=== PATIENT | female | born 1960 | race Hispanic/Latino ===

== ENCOUNTER → 2018-05-19 | Outpatient (CLI) | payer OTHER ==
[~2018-05-19] MED LIST: ASPI-1181 PO; ATOR10TA69 PO; CARV6.25 PO; CERT400S SQ; CHOL100040 PO; ERGO500014 PO; FOLI1TAB15 PO; FURO20TA4 PO; HYDR-4060 PO; LEVO100 PO; METF-446 PO; METH4TAB16 PO
== END | disposition home or self-care (01) ==
LOC: RAH 12:19
PROVIDERS: ATTEND Obstetrics & Gynecology
DX: Z12.31 Encounter for screening mammogram for malignant neoplasm of breast (principal); M06.9 Rheumatoid arthritis, unspecified
CPT/HCPCS: 77067

== ENCOUNTER 2018-12-20 23:04 | Emergency (ER) | payer OTHER ==
[2018-12-20 23:18] LABS: BASOPHILS % (AUTO) 0.4 % (0.0-5.0); EOSINOPHILS % (AUTO) 0.7 % (0.0-8.0); HEMATOCRIT 37.7 % (36-48); LYMPHOCYTES % (AUTO) 12.9 % (21.0-51.0); MEAN CORPUSCULAR HEMOGLOBIN 32.2 pg (27.0-33.0); MEAN CORPUSCULAR HGB CONC 33.7 g/dL (32.0-36.0); MEAN CORPUSCULAR VOLUME 95.4 fL (79-99); MONOCYTES % (AUTO) 6.7 % (3.0-13.0); NEUTROPHILS % (AUTO) 79.3 % (40.0-77.0); NUCLEATED RED BLOOD CELLS 0.1 % (0.0-0.19); PLATELET COUNT (AUTO) 304 K/uL (130-400); RED BLOOD CELL COUNT(AUTO) 3.95 MIL/uL (4.00-5.50); RED CELL DISTRIBUTION WIDTH 14.2 % (11.0-15.5); WHITE BLOOD COUNT (AUTO) 10.1 K/uL (4.8-10.8)
[2018-12-20 23:22] LABS: POTASSIUM 3.4 mmol/L (3.5-5.1)
[2018-12-20 23:26] LABS: CREATININE 0.5 mg/dL (0.5-1.5)
[2018-12-20 23:31] LABS: ALBUMIN 3.6 g/dL (3.5-5.0); BILIRUBIN,TOTAL 0.4 mg/dL (0.2-1.0); TOTAL PROTEIN, SERUM 7.7 g/dL (6.0-8.3)
[2018-12-20] MEDS ORDERED: LIDOCAINE 5% TOPICAL PATCH TP ONE (23:42)
[2018-12-20] MEDS ORDERED: KETOROLAC TROMETHAMINE 30MG/ML ONE (23:42)
[2018-12-20] MEDS ORDERED: ORPHENADRINE CITRATE 30 MG/ML ML ONE (23:42)
[2018-12-20] MEDS ORDERED: SODIUM CHLORIDE 0.9% 1000ML 1,000 ML IV ONE (23:43)
[2018-12-21 00:02] LABS: INR 0.95 (0.85-1.15); PARTIAL THROMBOPLASTIN TIME 27.8 SEC (26.3-35.5)
== END 2018-12-21 00:52 | disposition home or self-care (01) ==
LOC: EDH 23:04
DX: R07.89 Other chest pain (principal); M62.830 Muscle spasm of back; E11.9 Type 2 diabetes mellitus without complications; I10 Essential (primary) hypertension; E78.5 Hyperlipidemia, unspecified; I25.2 Old myocardial infarction; E07.9 Disorder of thyroid, unspecified; Z79.899 Other long term (current) drug therapy; Z90.710 Acquired absence of both cervix and uterus
CPT/HCPCS: 36415; 71045; 80053; 83690; 84484; 85025; 85610; 85730; 93005; 96374; 96375; 99285; J1885; J2360; J7030

== ENCOUNTER 2019-09-28 17:48 | Emergency (ER) | payer OTHER ==
[2019-09-28 18:22] LABS: BASOPHILS % (AUTO) 0.1 % (0.0-5.0); EOSINOPHILS % (AUTO) 0.3 % (0.0-8.0); HEMATOCRIT 37.7 % (36-48); LYMPHOCYTES % (AUTO) 5.9 % (21.0-51.0); MEAN CORPUSCULAR HGB CONC 32.4 g/dL (32.0-36.0); MEAN CORPUSCULAR VOLUME 95.7 fL (79-99); MONOCYTES % (AUTO) 3.6 % (3.0-13.0); NEUTROPHILS % (AUTO) 89.9 % (40.0-77.0); PLATELET COUNT (AUTO) 334 K/uL (130-400); RED BLOOD CELL COUNT(AUTO) 3.94 MIL/uL (4.00-5.50); RED CELL DISTRIBUTION WIDTH 13.2 % (11.0-15.5); WHITE BLOOD COUNT (AUTO) 12.1 K/uL (4.8-10.8)
[2019-09-28 18:38] LABS: CREATININE 0.7 mg/dL (0.5-1.5); INR 0.97 (0.85-1.15); PARTIAL THROMBOPLASTIN TIME 26.1 SEC (26.3-35.5); POTASSIUM 3.6 mmol/L (3.5-5.1); PROTHROMBIN TIME 10.2 SEC (9.6-11.6)
[2019-09-28 18:42] LABS: ALBUMIN 2.9 g/dL (3.5-5.0); BILIRUBIN,TOTAL 0.4 mg/dL (0.2-1.0)
[2019-09-28 19:37] LABS: APPEARANCE,URINE Clear (CLEAR); BILIRUBIN,URINE Negative (NEGATIVE); COLOR,URINE Yellow (YELLOW); GLUCOSE, URINE (UA) Negative (NEGATIVE); KETONES,URINE 15 mg/dL (NEGATIVE); LEUKOCYTE ESTERASE ,URINE Small (NEGATIVE); NITRATE,URINE Negative (NEGATIVE); OCCULT BLOOD,URINE Trace (NEGATIVE); PH,URINE 6.5 (5.0-8.0); PROTEIN,URINE Negative (NEGATIVE); UROBILINOGEN,URINE 0.2 mg/dL (0.2-1.0)
[2019-09-28 19:50] LABS: BACTERIA,URINE Few /HPF (None Seen); MUCUS,URINE Few LPF (None Seen); SQUAMOUS EPITHELIAL CELL,UR 0-2 /HPF (0-2)
[2019-09-28] MEDS ORDERED: CEFTRIAXONE SODIUM 1 GM ONE (20:11)
[2019-09-28] MEDS ORDERED: AZITHROMYCIN 500MG+NS 250ML 250 ML IV ONE (20:11)
[2019-09-28] MEDS ORDERED: DOCUSATE SODIUM 100 MG CAP PO ONE (20:11)
== END 2019-09-28 21:05 | disposition home or self-care (01) ==
LOC: EDH 17:48
DX: J18.9 Pneumonia, unspecified organism (principal); N39.0 Urinary tract infection, site not specified; K59.00 Constipation, unspecified; E11.65 Type 2 diabetes mellitus with hyperglycemia; E78.5 Hyperlipidemia, unspecified; I10 Essential (primary) hypertension
CPT/HCPCS: 36415; 71045; 74176; 80053; 81001; 82150; 82550; 83690; 84484; 85025; 85610; 85730; 87088; 93005; 96374; 96375; 99285; J0456; J0696

== ENCOUNTER → 2020-05-20 | Outpatient (CLI) | payer OTHER ==
[~2020-05-20] MED LIST changes: -ASPI-1181 PO; +ASPI-1443 PO
== END | disposition home or self-care (01) ==
LOC: RAH 09:40
PROVIDERS: ATTEND Family Medicine
DX: Z12.31 Encounter for screening mammogram for malignant neoplasm of breast (principal)
CPT/HCPCS: 77067

== ENCOUNTER → 2020-11-27 | Outpatient (CLI) | payer OTHER | END | disposition home or self-care (01) | LOC: OIH 14:22 | PROVIDERS: ATTEND Internal Medicine | DX: M19.072 Primary osteoarthritis, left ankle and foot (principal); M19.071 Primary osteoarthritis, right ankle and foot; M20.12 Hallux valgus (acquired), left foot; M19.032 Primary osteoarthritis, left wrist; M19.031 Primary osteoarthritis, right wrist; M19.041 Primary osteoarthritis, right hand; M19.042 Primary osteoarthritis, left hand | CPT/HCPCS: 73630 ==

== ENCOUNTER 2021-07-06 06:14 | Inpatient (IN) | payer OTHER ==
[~2021-07-06] VITALS: Ht 165.1 cm; Wt 72.3 kg
[2021-07-06] MEDS ORDERED: METOCLOPRAMIDE 10 MG/2 ML VIAL ONE (06:29)
[2021-07-06] MEDS ORDERED: ONDANSETRON 4MG INJ ONE (06:29)
[2021-07-06] MEDS ORDERED: ONDANSETRON 4MG INJ IVP SCH (06:30)
[2021-07-06] MEDS ORDERED: FAMOTIDINE 20MG VIAL IV ONE (06:30)
[2021-07-06] MEDS ORDERED: METOCLOPRAMIDE 10 MG/2 ML VIAL IVP SCH (06:30)
[2021-07-06] MEDS ORDERED: PANTOPRAZOLE 40 MG/VIAL ONE (06:30)
[2021-07-06] MEDS ORDERED: 0.9%NACL 1000ML 1,000 ML IV SCH (06:30)
[2021-07-06] MEDS ORDERED: PANTOPRAZOLE 40 MG/VIAL IVP SCH (06:30)
[2021-07-06] MEDS ORDERED: FAMOTIDINE 20MG VIAL IV SCH (06:30)
[2021-07-06] MEDS ORDERED: 0.9%NACL 1000ML 1,000 ML IV ONE (06:31)
[2021-07-06 06:39] LABS: BASOPHILS % (AUTO) 0.3 % (0.0-5.0); EOSINOPHILS % (AUTO) 0.5 % (0.0-8.0); HEMATOCRIT 45.4 % (36-48); LYMPHOCYTES % (AUTO) 9.7 % (21.0-51.0); MEAN CORPUSCULAR HEMOGLOBIN 29.3 pg (27.0-33.0); MEAN CORPUSCULAR HGB CONC 31.3 g/dL (32.0-36.0); MEAN CORPUSCULAR VOLUME 93.8 fL (79-99); MONOCYTES % (AUTO) 5.6 % (3.0-13.0); PLATELET COUNT (AUTO) 474 K/uL (130-400); RED BLOOD CELL COUNT(AUTO) 4.84 MIL/uL (4.00-5.50); RED CELL DISTRIBUTION WIDTH 14.9 % (11.0-15.5); WHITE BLOOD COUNT (AUTO) 16.5 K/uL (4.8-10.8)
[2021-07-06 06:58] LABS: ALBUMIN 3.8 g/dL (3.5-5.0); BILIRUBIN,TOTAL 0.4 mg/dL (0.2-1.0); CREATININE 0.9 mg/dL (0.5-1.5); POTASSIUM 3.2 mmol/L (3.5-5.1); TOTAL PROTEIN, SERUM 8.1 g/dL (6.0-8.3)
[2021-07-06] MEDS ORDERED: MAG/ALUM/SIMETH 30 ML UDCUP ONE (07:22)
[2021-07-06] MEDS ORDERED: DICYCLOMINE HCL 10 MG/5 ML ML PO SCH (07:30)
[2021-07-06] MEDS ORDERED: LIDOCAINE HCL 2% VISCOUS 15 ML UDCUP PO SCH (07:30)
[2021-07-06] MEDS ORDERED: MAG/ALUM/SIMETH 30 ML UDCUP PO SCH (07:30)
[2021-07-06] MEDS ORDERED: MORPHINE 4 MG SYG ONE (07:41)
[2021-07-06] MEDS ORDERED: MORPHINE 4 MG SYG IV SCH (08:00)
[2021-07-06 08:35] LABS: APPEARANCE,URINE Cloudy (CLEAR); BILIRUBIN,URINE Negative (NEGATIVE); COLOR,URINE Yellow (YELLOW); GLUCOSE, URINE (UA) Negative (NEGATIVE); KETONES,URINE Negative (NEGATIVE); LEUKOCYTE ESTERASE ,URINE Negative (NEGATIVE); NITRATE,URINE Negative (NEGATIVE); OCCULT BLOOD,URINE Negative (NEGATIVE); PH,URINE 5.5 (5.0-8.0); PROTEIN,URINE Negative (NEGATIVE)
[2021-07-06 08:56] LABS: BACTERIA,URINE Rare /HPF (None Seen); CALCIUM OXALATE CRYSTALS,UR Few /LPF (None Seen); MUCUS,URINE Rare LPF (None Seen); RBC,URINE None Seen /HPF (0-1); SQUAMOUS EPITHELIAL CELL,UR Rare /HPF (0-2); WBC,URINE None Seen /HPF (0-1)
[2021-07-06] MEDS ORDERED: HYDRALAZINE 20MG/ML VIAL IV PRN (09:30)
[2021-07-06] MEDS ORDERED: POTASSIUM CHLORIDE 20MEQ/100ML 100 ML IV PRN (09:30)
[2021-07-06] MEDS ORDERED: ACETAMINOPHEN 325 MG TAB PO PRN ×2 (09:30)
[2021-07-06] MEDS ORDERED: LIDOCAINE HCL-MPF 1% 2ML VIAL IV PRN (09:30)
[2021-07-06] MEDS ORDERED: ONDANSETRON 4MG INJ IV PRN (09:30)
[2021-07-06] MEDS ORDERED: IBUP-2071 PO (09:41)
[2021-07-06] MEDS ORDERED: TOFA11TA PO (09:41)
[2021-07-06] MEDS ORDERED: LEVO125C4 PO (09:41)
[2021-07-06] MEDS ORDERED: HYDR-4068 PO (09:41)
[2021-07-06] MEDS ORDERED: LINA145C PO (09:41)
[2021-07-06] MEDS ORDERED: ATOR10 PO (09:41)
[2021-07-06] MEDS ORDERED: METF-444 PO (09:41)
[2021-07-06] MEDS ORDERED: PRED5TAB PO (09:41)
[2021-07-06] MEDS ORDERED: TIZA-211 PO (09:41)
[2021-07-06] MEDS: LACTATED RINGERS 1000ML 1,000 ML IV SCH ×2 (11:03→20:32)
[2021-07-06] MEDS: INSULIN HUMULIN R 100 UNIT/ML 3ML SQ SCH ×3 (11:30→21:00)
[2021-07-06] MEDS ORDERED: MORPHINE 2 MG SYG ONE (11:48)
[2021-07-06] MEDS ORDERED: MORPHINE 2 MG SYG IVP SCH (12:00)
[2021-07-06] MEDS ORDERED: MORPHINE 2 MG SYG IVP PRN (12:00)
[2021-07-06] MEDS ORDERED: KETOROLAC 30MG VIAL (30MG/ML) ONE ×3 (12:48→23:43)
[2021-07-06] MEDS: KETOROLAC 15MG/ML VIAL (15MG/ML) IV PRN ×3 (12:56→23:45)
[2021-07-06] MEDS: ZOSYN 3.375GM+NS 50ML 50 ML IV SCH ×2 (13:57→20:31)
[2021-07-06] MEDS: FAMOTIDINE 20MG VIAL IV SCH (20:31)
[2021-07-06] MEDS ORDERED: HYDROMORPHONE 0.5 MG SYG (0.5MG/0.5ML) IVP ONE (21:00)
[2021-07-07] MEDS ORDERED: MORPHINE 2 MG SYG IVP ONE (01:30)
[2021-07-07] MEDS ORDERED: MORPHINE 2 MG SYG ONE (01:37)
[2021-07-07] MEDS ORDERED: KETOROLAC 30MG VIAL (30MG/ML) ONE (05:09)
[2021-07-07] MEDS: ZOSYN 3.375GM+NS 50ML 50 ML IV SCH ×3 (05:19→19:26)
[2021-07-07] MEDS: LACTATED RINGERS 1000ML 1,000 ML IV SCH ×2 (05:19→15:44)
[2021-07-07] MEDS: KETOROLAC 15MG/ML VIAL (15MG/ML) IV PRN ×2 (05:20→17:52)
[2021-07-07] MEDS: INSULIN HUMULIN R 100 UNIT/ML 3ML SQ SCH ×4 (07:30→20:32)
[2021-07-07 07:44] LABS: THYROID STIMULATING HORMONE 0.88 uIU/mL (0.36-3.74)
[2021-07-07 08:47] VITALS: BP 146/57
[2021-07-07] MEDS: FAMOTIDINE 20MG VIAL IV SCH ×2 (09:43→19:26)
[2021-07-07] MEDS: HYDROMORPHONE 0.5 MG SYG (0.5MG/0.5ML) IVP PRN ×3 (09:43→19:27)
[2021-07-07 09:56] LABS: BASOPHILS % (AUTO) 0.3 % (0.0-5.0); HEMATOCRIT 39.9 % (36-48); MEAN CORPUSCULAR HEMOGLOBIN 29.8 pg (27.0-33.0); MEAN CORPUSCULAR HGB CONC 31.3 g/dL (32.0-36.0); MONOCYTES % (AUTO) 5.5 % (3.0-13.0); NEUTROPHILS % (AUTO) 82.9 % (40.0-77.0); PLATELET COUNT (AUTO) 383 K/uL (130-400); RED CELL DISTRIBUTION WIDTH 14.9 % (11.0-15.5); WHITE BLOOD COUNT (AUTO) 14.6 K/uL (4.8-10.8)
[2021-07-07 10:05] LABS: CREATININE 0.8 mg/dL (0.5-1.5); POTASSIUM 3.5 mmol/L (3.5-5.1)
[2021-07-07 10:08] LABS: INR 0.95 (0.85-1.15); PROTHROMBIN TIME 10.4 SEC (9.6-11.6)
[2021-07-07 10:10] LABS: ALBUMIN 3.1 g/dL (3.5-5.0); BILIRUBIN,TOTAL 0.6 mg/dL (0.2-1.0); MAGNESIUM 2.4 mg/dL (1.80-2.40); PHOSPHORUS 3.2 mg/dL (2.5-4.9)
[2021-07-07 11:41] VITALS: BP 134/75
[2021-07-07 16:19] VITALS: BP 137/80
[2021-07-07 20:20] VITALS: BP 151/86
[2021-07-08 00:24] VITALS: BP 149/85
[2021-07-08] MEDS: HYDROMORPHONE 0.5 MG SYG (0.5MG/0.5ML) IVP PRN ×4 (01:44→09:45)
[2021-07-08] MEDS: LACTATED RINGERS 1000ML 1,000 ML IV SCH ×2 (02:20→19:52)
[2021-07-08 03:32] VITALS: BP 148/91
[2021-07-08 04:58] LABS: BASOPHILS % (AUTO) 0.3 % (0.0-5.0); HEMATOCRIT 36.5 % (36-48); LYMPHOCYTES % (AUTO) 8.2 % (21.0-51.0); MEAN CORPUSCULAR HEMOGLOBIN 29.2 pg (27.0-33.0); MEAN CORPUSCULAR HGB CONC 30.4 g/dL (32.0-36.0); MEAN CORPUSCULAR VOLUME 96.1 fL (79-99); MONOCYTES % (AUTO) 5.5 % (3.0-13.0); NEUTROPHILS % (AUTO) 83.5 % (40.0-77.0); PLATELET COUNT (AUTO) 326 K/uL (130-400); RED CELL DISTRIBUTION WIDTH 14.5 % (11.0-15.5); WHITE BLOOD COUNT (AUTO) 11.6 K/uL (4.8-10.8)
[2021-07-08 05:19] LABS: ALBUMIN 2.6 g/dL (3.5-5.0); BILIRUBIN,TOTAL 0.3 mg/dL (0.2-1.0); CREATININE 0.6 mg/dL (0.5-1.5); MAGNESIUM 2.2 mg/dL (1.80-2.40); PHOSPHORUS 3.2 mg/dL (2.5-4.9); POTASSIUM 4.1 mmol/L (3.5-5.1); TOTAL PROTEIN, SERUM 6.1 g/dL (6.0-8.3)
[2021-07-08] MEDS: KETOROLAC 15MG/ML VIAL (15MG/ML) IV PRN (05:27)
[2021-07-08] MEDS: ZOSYN 3.375GM+NS 50ML 50 ML IV SCH ×3 (05:28→19:51)
[2021-07-08] MEDS: INSULIN HUMULIN R 100 UNIT/ML 3ML SQ SCH ×4 (05:47→21:00)
[2021-07-08 08:00] VITALS: BP 130/79
[2021-07-08] MEDS: FAMOTIDINE 20MG VIAL IV SCH ×2 (09:11→19:52)
[2021-07-08 10:25] LABS: AMPHET/METH SCREEN,URINE NEGATIVE (NEGATIVE); BARBITURATE SCREEN, URINE NEGATIVE (NEGATIVE); BENZODIAZEPINES SCREEN,URINE NEGATIVE (NEGATIVE); CANNABINOID SCREEN,URINE NEGATIVE (NEGATIVE); COCAINE SCREEN,URINE NEGATIVE (NEGATIVE); OPIATE SCREEN,URINE POSITIVE (NEGATIVE); PHENCYCLIDINE SCREEN,URINE NEGATIVE (NEGATIVE)
[2021-07-08 11:22] VITALS: BP 151/89
[2021-07-08] MEDS ORDERED: KETOROLAC 15MG/ML VIAL (15MG/ML) IM PRN (11:30)
[2021-07-08] MEDS ORDERED: KETOROLAC 30MG VIAL (30MG/ML) ONE ×2 (11:32→18:24)
[2021-07-08] MEDS: HYDROMORPHONE 1 MG INJ IVP PRN ×2 (13:07→16:47)
[2021-07-08 16:16] VITALS: BP 153/87
[2021-07-08] MEDS ORDERED: CETIRIZINE HCL 5 MG TABLET PO SCH (18:00)
[2021-07-08] MEDS ORDERED: BISACODYL 10 MG SUPP.RECT RC PRN (18:30)
[2021-07-08] MEDS: KETOROLAC 15MG/ML VIAL (15MG/ML) IV SCH (19:00)
[2021-07-08 20:00] VITALS: BP 152/92
[2021-07-09] MEDS: KETOROLAC 15MG/ML VIAL (15MG/ML) IV SCH ×4 (00:58→18:36)
[2021-07-09] MEDS: HYDROMORPHONE 1 MG INJ IVP PRN ×4 (02:24→20:41)
[2021-07-09 04:00] VITALS: BP 137/76
[2021-07-09] MEDS: ZOSYN 3.375GM+NS 50ML 50 ML IV SCH ×3 (05:11→20:28)
[2021-07-09 06:07] LABS: BASOPHILS % (AUTO) 0.2 % (0.0-5.0); EOSINOPHILS % (AUTO) 1.3 % (0.0-8.0); HEMATOCRIT 34.1 % (36-48); LYMPHOCYTES % (AUTO) 8.9 % (21.0-51.0); MEAN CORPUSCULAR HGB CONC 32.3 g/dL (32.0-36.0); MEAN CORPUSCULAR VOLUME 92.9 fL (79-99); MONOCYTES % (AUTO) 5.4 % (3.0-13.0); NEUTROPHILS % (AUTO) 83.6 % (40.0-77.0); PLATELET COUNT (AUTO) 303 K/uL (130-400); RED BLOOD CELL COUNT(AUTO) 3.67 MIL/uL (4.00-5.50); RED CELL DISTRIBUTION WIDTH 14.4 % (11.0-15.5)
[2021-07-09] MEDS: INSULIN HUMULIN R 100 UNIT/ML 3ML SQ SCH ×4 (06:15→20:41)
[2021-07-09 06:19] LABS: CREATININE 0.6 mg/dL (0.5-1.5); MAGNESIUM 1.8 mg/dL (1.80-2.40); POTASSIUM 3.7 mmol/L (3.5-5.1)
[2021-07-09 07:53] VITALS: BP 149/78
[2021-07-09] MEDS: FAMOTIDINE 20MG VIAL IV SCH ×2 (08:14→20:28)
[2021-07-09] MEDS ORDERED: CETIRIZINE HCL 5 MG TABLET PO SCH (09:00)
[2021-07-09 11:12] VITALS: BP 150/68
[2021-07-09] MEDS: DOCUSATE SODIUM 100 MG CAP PO SCH (11:19)
[2021-07-09] MEDS: LACTULOSE 20 GM/30 ML UDCUP PO SCH ×3 (11:19→22:00)
[2021-07-09] MEDS: IBUPROFEN 800 MG TAB PO PRN ×2 (11:20→18:20)
[2021-07-09] MEDS: LACTATED RINGERS 1000ML 1,000 ML IV SCH (11:26)
[2021-07-09] MEDS: CALCITONIN 3.7 ML AEROSOL NS SCH (11:30)
[2021-07-09] MEDS ORDERED: DIATR MEGLU/DIATRIZOATE SODIUM 30 ML BOTTLE ONE (14:02)
[2021-07-09 15:34] VITALS: BP 147/86
[2021-07-09] MEDS ORDERED: IOHEXOL-350 75 ML VIAL IV ONE (16:55)
[2021-07-09] MEDS: LIDOCAINE 5% TOPICAL PATCH TP SCH (19:38)
[2021-07-09] MEDS: GABAPENTIN 300 MG CAPSULE PO SCH ×2 (19:38→20:16)
[2021-07-09 20:00] VITALS: BP 143/74
[2021-07-10] MEDS: KETOROLAC 15MG/ML VIAL (15MG/ML) IV SCH ×3 (01:00→14:00)
[2021-07-10] MEDS: LACTULOSE 20 GM/30 ML UDCUP PO SCH ×2 (03:48→10:26)
[2021-07-10] MEDS: LACTATED RINGERS 1000ML 1,000 ML IV SCH (03:48)
[2021-07-10] MEDS: HYDROMORPHONE 1 MG INJ IVP PRN (03:56)
[2021-07-10 04:00] VITALS: BP 143/76
[2021-07-10] MEDS: ZOSYN 3.375GM+NS 50ML 50 ML IV SCH (05:22)
[2021-07-10] MEDS: INSULIN HUMULIN R 100 UNIT/ML 3ML SQ SCH ×2 (07:30→11:30)
[2021-07-10 07:59] VITALS: BP 146/75
[2021-07-10] MEDS: LIDOCAINE 5% TOPICAL PATCH TP SCH (08:26)
[2021-07-10] MEDS: GABAPENTIN 300 MG CAPSULE PO SCH (08:26)
[2021-07-10] MEDS: FAMOTIDINE 20MG VIAL IV SCH (08:26)
[2021-07-10] MEDS: CALCITONIN 3.7 ML AEROSOL NS SCH (08:26)
[2021-07-10 09:37] LABS: BASOPHILS % (AUTO) 0.4 % (0.0-5.0); EOSINOPHILS % (AUTO) 1.5 % (0.0-8.0); HEMATOCRIT 36.7 % (36-48); LYMPHOCYTES % (AUTO) 9.5 % (21.0-51.0); MEAN CORPUSCULAR HEMOGLOBIN 29.9 pg (27.0-33.0); MEAN CORPUSCULAR HGB CONC 31.3 g/dL (32.0-36.0); MEAN CORPUSCULAR VOLUME 95.6 fL (79-99); MONOCYTES % (AUTO) 7.9 % (3.0-13.0); NEUTROPHILS % (AUTO) 80.2 % (40.0-77.0); PLATELET COUNT (AUTO) 310 K/uL (130-400); RED BLOOD CELL COUNT(AUTO) 3.84 MIL/uL (4.00-5.50); RED CELL DISTRIBUTION WIDTH 14.7 % (11.0-15.5); WHITE BLOOD COUNT (AUTO) 8.4 K/uL (4.8-10.8)
[2021-07-10 09:49] LABS: CREATININE 0.7 mg/dL (0.5-1.5); POTASSIUM 3.3 mmol/L (3.5-5.1)
[2021-07-10 09:52] LABS: ALBUMIN 2.8 g/dL (3.5-5.0); BILIRUBIN,TOTAL 0.3 mg/dL (0.2-1.0); CRP QUANTITATIVE 37.9 mg/L (0.00-9.0); PHOSPHORUS 2.7 mg/dL (2.5-4.9); TOTAL PROTEIN, SERUM 6.4 g/dL (6.0-8.3)
[2021-07-10] MEDS: DOCUSATE SODIUM 100 MG CAP PO SCH (10:26)
[2021-07-10] MEDS: IBUPROFEN 800 MG TAB PO PRN (10:27)
[2021-07-10 10:40] LABS: ERYTHROCYTE SEDIMENTATION RATE 65 MM/HR (0-30)
[2021-07-10 12:10] VITALS: BP 118/63
[2021-07-10] MEDS ORDERED: GABAPENTIN 300 MG CAPSULE PO SCH (14:00)
[2021-07-10] MEDS ORDERED: GABAPENTIN 100 MG CAPSULE PO SCH (14:00)
== END 2021-07-10 14:25 | disposition home or self-care (01) | DRG 389 ==
LOC: EDH 06:14 → EDHIP 09:17 → 3DH 07-07 08:36
PROVIDERS: ADMIT Internal Medicine; ATTEND Internal Medicine
PROC: 0D9670Z Drainage of Stomach with Drainage Device, Via Natural or Artificial Opening (ICD-10-PCS; principal; 2021-07-07)
DX: K56.609 Unspecified intestinal obstruction, unspecified as to partial versus complete obstruction (principal); M48.54XA Collapsed vertebra, not elsewhere classified, thoracic region, initial encounter for fracture; K80.21 Calculus of gallbladder without cholecystitis with obstruction; D72.829 Elevated white blood cell count, unspecified; K31.89 Other diseases of stomach and duodenum; E03.9 Hypothyroidism, unspecified; E78.5 Hyperlipidemia, unspecified; E87.6 Hypokalemia; I10 Essential (primary) hypertension; M06.9 Rheumatoid arthritis, unspecified; E11.9 Type 2 diabetes mellitus without complications; G89.29 Other chronic pain; I25.2 Old myocardial infarction; K57.90 Diverticulosis of intestine, part unspecified, without perforation or abscess without bleeding; E78.00 Pure hypercholesterolemia, unspecified; Z80.0 Family history of malignant neoplasm of digestive organs; Z80.42 Family history of malignant neoplasm of prostate; Z82.0 Family history of epilepsy and other diseases of the nervous system; Z83.3 Family history of diabetes mellitus; Z82.49 Family history of ischemic heart disease and other diseases of the circulatory system; Z20.822 Contact with and (suspected) exposure to COVID-19
CPT/HCPCS: 36415; 71045; 74018; 74176; 74177; 80048; 80053; 80305; 81001; 82150; 82948; 83605; 83690; 83735; 83880; 84100; 84145; 84439; 84443; 84481; 84484; 85025; 85610; 85651; 85730; 86140; 87040; 87088; 87635; 93005; C9113; G0378; J1170; J1885; J2270; J2405; J2543; J2765; J3490; J7030; J7120; Q9963; Q9967

== ENCOUNTER → 2021-07-20 | Outpatient (CLI) | payer OTHER ==
[~2021-07-20] MED LIST changes: -ASPI-1443 PO; +ATOR10 PO; -ATOR10TA69 PO; -CARV6.25 PO; -CERT400S SQ; -ERGO500014 PO; -FOLI1TAB15 PO; -FURO20TA4 PO; -HYDR-4060 PO; +IBUP-2071 PO; -LEVO100 PO; +LEVO125C4 PO; +LINA145C PO; +METF-444 PO; -METF-446 PO; -METH4TAB16 PO; +PRED5TAB PO; +TIZA-211 PO
== END | disposition home or self-care (01) ==
LOC: RAH 10:05
PROVIDERS: ATTEND Neurological Surgery
DX: S22.080A Wedge compression fracture of T11-T12 vertebra, initial encounter for closed fracture (principal); S22.060A Wedge compression fracture of T7-T8 vertebra, initial encounter for closed fracture; S22.070A Wedge compression fracture of T9-T10 vertebra, initial encounter for closed fracture; M47.814 Spondylosis without myelopathy or radiculopathy, thoracic region; M48.04 Spinal stenosis, thoracic region; M51.24 Other intervertebral disc displacement, thoracic region; X58.XXXA Exposure to other specified factors, initial encounter; Y93.89 Activity, other specified; Y92.89 Other specified places as the place of occurrence of the external cause; Y99.8 Other external cause status
CPT/HCPCS: 72146

== ENCOUNTER 2021-08-15 14:09 | Emergency (ER) | payer OTHER ==
[~2021-08-15] VITALS: Ht 165.1 cm; Wt 68.0 kg
[2021-08-15] MEDS ORDERED: ACETAMINOPHEN 500 MG TABLET ONE (14:35)
[2021-08-15] MEDS ORDERED: TETANUS/DIPHTHERIA TOXOID [ADULT] 0.5 ML VIAL IM ONE ×2 (14:36→15:30)
[2021-08-15] MEDS ORDERED: ACETAMINOPHEN 500 MG TABLET PO ONE (15:30)
[2021-08-15] MEDS ORDERED: LIDOCAINE HCL 1% 20 ML VIAL ONE (16:20)
[2021-08-15] MEDS ORDERED: CEPH500B PO (16:47)
[2021-08-15] MEDS ORDERED: LIDOCAINE 1%-EPI 1:100,000 20 ML VIAL IJ ONE (17:00)
[2021-08-15] MEDS ORDERED: LIDOCAINE HCL 1% 20 ML VIAL INJ ONE (17:00)
[2021-08-15] MEDS ORDERED: NEOMY SULF/BACITRA/POLYMYXIN B 1 EACH PACKET TP ONE (17:29)
[2021-08-15 17:38] VITALS: BP 134/78
== END 2021-08-15 17:44 | disposition home or self-care (01) ==
LOC: EDH 14:09
DX: S81.012A Laceration without foreign body, left knee, initial encounter (principal); S50.312A Abrasion of left elbow, initial encounter; M19.90 Unspecified osteoarthritis, unspecified site; Z79.84 Long term (current) use of oral hypoglycemic drugs; Z79.899 Other long term (current) drug therapy; W18.39XA Other fall on same level, initial encounter; Y93.89 Activity, other specified; Y92.89 Other specified places as the place of occurrence of the external cause; Y99.8 Other external cause status
CPT/HCPCS: 12002; 73070; 73100; 73562; 90471; 90714

== ENCOUNTER → 2021-09-23 | Outpatient (CLI) | payer OTHER ==
[~2021-09-23] MED LIST changes: +CEPH500B PO
== END | disposition home or self-care (01) ==
LOC: RAH 12:59
PROVIDERS: ATTEND Family Medicine
DX: Z12.31 Encounter for screening mammogram for malignant neoplasm of breast (principal)
CPT/HCPCS: 77067

== ENCOUNTER 2022-02-15 02:55 | Emergency (ER) | payer BC, OTHER ==
[~2022-02-15] VITALS: Ht 162.6 cm; Wt 71.7 kg
[2022-02-15] MEDS ORDERED: LOPERAMIDE HCL 2 MG CAP PO ONE ×2 (03:40→04:00)
[2022-02-15] MEDS ORDERED: ONDANSETRON 4MG INJ ONE (03:40)
[2022-02-15] MEDS ORDERED: 0.9%NACL 1000ML 1,000 ML IV ONE (03:40)
[2022-02-15 03:42] LABS: APPEARANCE,URINE CLEAR (CLEAR); BASOPHILS % (AUTO) 0.3 % (0.0-5.0); BILIRUBIN,URINE NEGATIVE (NEGATIVE); COLOR,URINE YELLOW (YELLOW); EOSINOPHILS % (AUTO) 0.5 % (0.0-8.0); GLUCOSE, URINE (UA) NEGATIVE (NEGATIVE); HEMATOCRIT 43.2 % (36-48); KETONES,URINE NEGATIVE (NEGATIVE); LEUKOCYTE ESTERASE ,URINE TRACE (NEGATIVE); LYMPHOCYTES % (AUTO) 8.6 % (21.0-51.0); MEAN CORPUSCULAR HEMOGLOBIN 31.3 pg (27.0-33.0); MEAN CORPUSCULAR HGB CONC 32.2 g/dL (32.0-36.0); MEAN CORPUSCULAR VOLUME 97.3 fL (79-99); MONOCYTES % (AUTO) 1.6 % (3.0-13.0); NEUTROPHILS % (AUTO) 88.2 % (40.0-77.0); NITRATE,URINE POSITIVE (NEGATIVE); OCCULT BLOOD,URINE NEGATIVE (NEGATIVE); PLATELET COUNT (AUTO) 256 K/uL (130-400); PROTEIN,URINE NEGATIVE (NEGATIVE); RED BLOOD CELL COUNT(AUTO) 4.44 MIL/uL (4.00-5.50); RED CELL DISTRIBUTION WIDTH 15.7 % (11.0-15.5); UROBILINOGEN,URINE 0.2 mg/dL (0.2-1.0)
[2022-02-15 03:50] LABS: RBC,URINE 0-1 /HPF (0-1)
[2022-02-15 03:51] LABS: BACTERIA,URINE Many /HPF (None Seen); SQUAMOUS EPITHELIAL CELL,UR Few /HPF (0-2)
[2022-02-15 03:55] LABS: CARBON DIOXIDE 27 mmol/L (21-32); CHLORIDE 103 mmol/L (101-111); CREATININE 0.8 mg/dL (0.5-1.5); GLOMERULAR FILTR. RATE CALC 78 mL/min (>60); GLUCOSE,RANDOM 108 mg/dL (70-105); POTASSIUM 3.9 mmol/L (3.5-5.1); SODIUM SERUM 139 mmol/L (136-145); UREA NITROGEN, BLOOD 11 mg/dL (7-18)
[2022-02-15 03:59] LABS: ALANINE AMINOTRANSFERASE 21 U/L (12-78); ALBUMIN 3.2 g/dL (3.5-5.0); ASPARTATE AMINOTRANSFERASE 13 U/L (10-37); LIPASE 168 U/L (114-286); TOTAL PROTEIN, SERUM 6.9 g/dL (6.0-8.3)
[2022-02-15] MEDS ORDERED: 0.9%NACL 1000ML 1,000 ML IV SCH (04:00)
[2022-02-15] MEDS ORDERED: ONDANSETRON 4MG INJ IVP ONE (04:00)
[2022-02-15] MEDS ORDERED: LOPE2CAP PO (04:21)
[2022-02-15] MEDS ORDERED: ONDA22I PO (04:21)
[2022-02-15 04:51] VITALS: BP 134/69
== END 2022-02-15 04:59 | disposition home or self-care (01) ==
LOC: EDH 02:55
DX: K52.9 Noninfective gastroenteritis and colitis, unspecified (principal); E03.9 Hypothyroidism, unspecified; E11.9 Type 2 diabetes mellitus without complications; E78.00 Pure hypercholesterolemia, unspecified; I11.0 Hypertensive heart disease with heart failure; I50.9 Heart failure, unspecified; Z79.1 Long term (current) use of non-steroidal anti-inflammatories (NSAID); Z79.52 Long term (current) use of systemic steroids
CPT/HCPCS: 99284; 96374; 96361; 80053; 83690; 85025; 87077; 87088; 87186; 81001; 36415; J7030; J2405

== ENCOUNTER 2022-02-15 20:47 | Emergency (ER) | payer BC ==
[~2022-02-15] VITALS: Ht 162.6 cm; Wt 73.0 kg
[~2022-02-15 20:47] MED LIST changes: +0.9%NACL 1000ML 1,000 ML IV ONE; +LOPE2CAP PO; +ONDA22I PO; +ONDANSETRON 4MG INJ IVP ONE
[2022-02-15 21:48] LABS: BASOPHILS % (AUTO) 0.1 % (0.0-5.0); EOSINOPHILS % (AUTO) 0.1 % (0.0-8.0); HEMATOCRIT 47.4 % (36-48); LYMPHOCYTES % (AUTO) 5.8 % (21.0-51.0); MEAN CORPUSCULAR HEMOGLOBIN 31.5 pg (27.0-33.0); MEAN CORPUSCULAR HGB CONC 32.3 g/dL (32.0-36.0); MEAN CORPUSCULAR VOLUME 97.5 fL (79-99); MONOCYTES % (AUTO) 4.5 % (3.0-13.0); NEUTROPHILS % (AUTO) 88.8 % (40.0-77.0); PLATELET COUNT (AUTO) 236 K/uL (130-400); RED BLOOD CELL COUNT(AUTO) 4.86 MIL/uL (4.00-5.50); RED CELL DISTRIBUTION WIDTH 15.7 % (11.0-15.5); WHITE BLOOD COUNT (AUTO) 14.5 K/uL (4.8-10.8)
[2022-02-15 21:55] LABS: CREATININE 0.9 mg/dL (0.5-1.5); POTASSIUM 3.9 mmol/L (3.5-5.1)
[2022-02-15 21:59] LABS: ALBUMIN 3.2 g/dL (3.5-5.0); TOTAL PROTEIN, SERUM 7.3 g/dL (6.0-8.3)
[2022-02-15] MEDS ORDERED: ONDANSETRON 4MG INJ IVP ONE (22:00)
[2022-02-15] MEDS ORDERED: PANTOPRAZOLE 40 MG/VIAL IVP ONE ×2 (22:00)
[2022-02-15] MEDS ORDERED: HYOSCYAMINE SULFATE 0.125 MG TAB.SUBL SL ONE ×2 (22:00)
[2022-02-15] MEDS ORDERED: 0.9%NACL 1000ML 1,000 ML IV ONE (22:00)
[2022-02-16] MEDS ORDERED: 0.9%NACL 1000ML 1,000 ML IV ONE (01:00)
[2022-02-16] MEDS ORDERED: ACETAMINOPHEN 500 MG TABLET PO STA (01:00)
[2022-02-16] MEDS ORDERED: ONDANSETRON 4MG INJ IVP STA (01:00)
[2022-02-16] MEDS ORDERED: ACETAMINOPHEN 500 MG TABLET ONE (01:00)
[2022-02-16 02:06] VITALS: BP 142/65
== END 2022-02-16 02:36 | disposition home or self-care (01) ==
LOC: EDH 20:47
DX: K52.9 Noninfective gastroenteritis and colitis, unspecified (principal); R50.9 Fever, unspecified; E03.9 Hypothyroidism, unspecified; E11.9 Type 2 diabetes mellitus without complications; E78.00 Pure hypercholesterolemia, unspecified; I11.0 Hypertensive heart disease with heart failure; I50.9 Heart failure, unspecified; Z79.1 Long term (current) use of non-steroidal anti-inflammatories (NSAID); Z79.52 Long term (current) use of systemic steroids
CPT/HCPCS: 99284 ×2; 82150; 80053 ×2; 83690 ×2; 85025 ×2; 87077; 87088; 87186; 81001; 36415 ×2; 96374 ×2; 96361 ×3; 96375; 96376; J7030 ×3; J2405 ×3; C9113